=== PATIENT | male | born 1960 | race Caucasian/White ===

== ENCOUNTER 2023-02-03 10:59 | Emergency (ER) | payer MEDICAID ==
[~2023-02-03] VITALS: Ht 175.3 cm; Wt 136.1 kg
[2023-02-03 11:05] VITALS: BP_SYST 150
--- NOTE | 2023-02-03 11:20 | NUR ---
PT TO ROOM 3
--- NOTE | 2023-02-03 11:23 | NUR ---
PT BIB FRIEND AWAKEW AND ALERT AOX4, NO SOB OR DISTRESS. PT C/O BACK PAIN 6/10 AND RECTAL BLEEDING. PT STATES HE SEES RED BLOOD. PT HAS HX OF KIDNEY CANCER WITH THE R ROGELIO REMOVED. ALSO HAS HX OF HTN, DM2, HDL.
--- NOTE | 2023-02-03 11:25 | NUR ---
MD DR DOTSON AT BEDSIDE
[2023-02-03] MEDS ORDERED: HYDR-3921 PO (12:06)
[2023-02-03] MEDS ORDERED: HYDR30CR79 TP (12:06)
--- NOTE | 2023-02-03 12:30 | NUR ---
Patient given written and verbal discharge instructions and verbalizes understanding. ER MD DR DOTSON discussed with patient the results and treatment provided. Patient in stable condition. ID arm band removed. Rx of HYDROCORTISONE given. Patient educated on pain management and to follow up with PMD. Pain Scale 3/10. Opportunity for questions provided and answered. Medication side effect fact sheet provided.
[2023-02-03 14:27] VITALS: BP_SYST 135
== END 2023-02-03 12:30 | disposition home or self-care (01) ==
LOC: SED 10:59
DX: K64.4 Residual hemorrhoidal skin tags (principal); K62.5 Hemorrhage of anus and rectum; M54.50 Low back pain, unspecified; E11.9 Type 2 diabetes mellitus without complications; I10 Essential (primary) hypertension; Z85.528 Personal history of other malignant neoplasm of kidney; Z79.899 Other long term (current) drug therapy
CPT/HCPCS: 99283